=== PATIENT | female | born 1965 | race African-American/Black ===

== ENCOUNTER 2018-11-04 13:47 | Inpatient (IN) ==
[2018-11-04] MEDS ORDERED: MORPHINE 4 MG/1 ML VIAL IV PRN (15:58)
[2018-11-04] MEDS ORDERED: ACETAMINOPHEN 325 MG TABLET PO PRN (15:58)
[2018-11-04] MEDS ORDERED: ALBUTEROL/IPRATROPIUM 3 ML NEB RESP TX PRN (15:58)
[2018-11-04] MEDS ORDERED: ALBUTEROL 2.5 MG/3 ML NEB RESP TX PRN (15:58)
[2018-11-04] MEDS ORDERED: GLUCAGON 1 MG VIAL IM PRN (15:58)
[2018-11-04] MEDS ORDERED: DEXTROSE 50% 25 GM/50 ML SYRINGE IV PRN (15:58)
[2018-11-04] MEDS ORDERED: ZALEPLON 5 MG CAPSULE PO PRN (15:58)
[2018-11-04] MEDS: FUROSEMIDE 40 MG/4 ML VIAL IV SCH (16:32)
[2018-11-04] MEDS: CARVEDILOL 25 MG TABLET PO SCH (16:32)
[2018-11-04] MEDS: INSULIN LISPRO 100 UNIT/ML SUBCUT SCH ×2 (16:33→20:21)
[2018-11-04] MEDS ORDERED: amLODIPine 5 MG TABLET PO ONE (17:13)
[2018-11-04 17:21] LABS: Troponin I < 0.015 NG/ML (0.00-0.045)
[2018-11-04] MEDS: POTASSIUM CHLORIDE 20 MEQ TABLET PO SCH (20:20)
[2018-11-04] MEDS: RANOLAZINE 500 MG TABLET PO SCH (20:20)
[2018-11-04] MEDS: DOCUSATE SODIUM 100 MG CAPSULE PO SCH (20:20)
[2018-11-04] MEDS: GABAPENTIN 600 MG TABLET PO SCH (20:20)
[2018-11-04] MEDS: CAPTOPRIL 25 MG TABLET PO SCH (20:20)
[2018-11-04] MEDS: ENOXAPARIN 40 MG/0.4 ML SYRINGE SUBCUT SCH (20:21)
[2018-11-04] MEDS: NITROGLYCERIN 2% OINT 1 INCH/GM PACK TOP SCH (20:21)
[2018-11-04 23:39] LABS: Troponin I < 0.015 NG/ML (0.00-0.045)
[2018-11-05 06:30] LABS: Basophils % 0.2 % (0.0-0.8); Hemoglobin 12.1 GM/DL (12.0-16.0); Immature Granulocytes % 0.4 %; Immature Granulocytes Absolute 0.04 #; Lymphocytes # 1.6 10*3/uL (1.4-4.0); Mean Corpuscular HGB Conc 29.5 GM/DL (32-36); Mean Corpuscular Hemoglobin 26 PG (27-34); Mean Corpuscular Volume 88.7 FL (87-102); Mean Platelet Volume 11.9 FL (9.6-12.0); Monocytes # 0.8 10*3/uL (0.11-0.8); Neutrophils # 7.6 10*3/uL (1.4-7.4); Neutrophils % 75.4 % (38.7-73.9); Platelet Count 257 T/CUMM (130-400); Red Blood Count 4.62 MC/CUMM (3.8-5.5); Red Cell Distribution Width 15.9 % (9.3-17.3); White Blood Count 10.1 T/CUMM (4-12)
[2018-11-05 06:35] LABS: Albumin 3.2 G/DL (3.4-5.0); Bilirubin,Total 0.7 MG/DL (0.2-1.0); Calcium 8.3 MG/DL (8.5-10.1); Potassium 4.3 MMOL/L (3.5-5.1); Risk Ratio 3.87; Thyroid Stimulating Hormone 0.287 uIU/ml (0.358-3.74); Total Protein 7.8 G/DL (6.4-8.3); VLDL CHOLESTEROL 25.4 MG/DL
[2018-11-05] MEDS: amLODIPine 5 MG TABLET PO SCH (08:44)
[2018-11-05] MEDS: ASPIRIN EC 81 MG TABLET PO SCH (08:44)
[2018-11-05] MEDS: CAPTOPRIL 25 MG TABLET PO SCH ×3 (08:44→21:56)
[2018-11-05] MEDS: ISOSORBIDE MONONITRATE 60 MG TABLET PO SCH (08:44)
[2018-11-05] MEDS: GABAPENTIN 600 MG TABLET PO SCH ×3 (08:44→21:58)
[2018-11-05] MEDS: FUROSEMIDE 40 MG/4 ML VIAL IV SCH ×2 (08:44→15:15)
[2018-11-05] MEDS: RANOLAZINE 500 MG TABLET PO SCH ×2 (08:44→21:58)
[2018-11-05] MEDS: POTASSIUM CHLORIDE 20 MEQ TABLET PO SCH ×2 (08:44→21:57)
[2018-11-05] MEDS: CARVEDILOL 25 MG TABLET PO SCH ×2 (08:44→16:42)
[2018-11-05] MEDS: ATORVASTATIN 40 MG TABLET PO SCH (08:44)
[2018-11-05] MEDS: DOCUSATE SODIUM 100 MG CAPSULE PO SCH ×2 (08:44→21:56)
[2018-11-05] MEDS: INSULIN REGULAR ** CONC 500 UNIT/ML ** 20 ML VIAL SUBCUT SCH ×2 (08:45→16:42)
[2018-11-05] MEDS: NITROGLYCERIN 2% OINT 1 INCH/GM PACK TOP SCH ×2 (08:47→21:58)
[2018-11-05] MEDS ORDERED: LISINOPRIL/HCTZ 20-12.5 MG TABLET PO SCH (09:00)
[2018-11-05] MEDS ORDERED: ONDANSETRON 4 MG/2 ML VIAL ONE (09:05)
[2018-11-05] MEDS: INSULIN LISPRO 100 UNIT/ML SUBCUT SCH ×4 (10:18→21:56)
[2018-11-05] MEDS: ENOXAPARIN 40 MG/0.4 ML SYRINGE SUBCUT SCH (21:57)
[2018-11-06 08:35] LABS: Basophils # 0.1 10*3/uL (0.0-0.2); Basophils % 0.5 % (0.0-0.8); Eosinophils # 0.3 10*3/uL (0.0-0.87); Eosinophils % 2.8 % (0.00-10.9); Hematocrit 40.9 VOL% (35.7-47.0); Immature Granulocytes % 0.3 %; Immature Granulocytes Absolute 0.03 #; Lymphocytes # 3.1 10*3/uL (1.4-4.0); Lymphocytes % 30.3 % (21.3-54.2); Mean Corpuscular HGB Conc 29.1 GM/DL (32-36); Mean Corpuscular Hemoglobin 26 PG (27-34); Mean Corpuscular Volume 89.9 FL (87-102); Monocytes # 0.9 10*3/uL (0.11-0.8); Monocytes % 8.4 % (1.7-12.7); Neutrophils # 5.9 10*3/uL (1.4-7.4); Neutrophils % 57.7 % (38.7-73.9); Platelet Count 253 T/CUMM (130-400); Red Blood Count 4.55 MC/CUMM (3.8-5.5); Red Cell Distribution Width 15.9 % (9.3-17.3); White Blood Count 10.2 T/CUMM (4-12)
[2018-11-06 08:36] LABS: Hemoglobin 11.9 GM/DL (12.0-16.0)
[2018-11-06] MEDS: INSULIN LISPRO 100 UNIT/ML SUBCUT SCH ×4 (09:10→22:15)
[2018-11-06] MEDS: POTASSIUM CHLORIDE 20 MEQ TABLET PO SCH ×2 (09:10→22:16)
[2018-11-06] MEDS: GABAPENTIN 600 MG TABLET PO SCH ×3 (09:10→22:16)
[2018-11-06] MEDS: amLODIPine 5 MG TABLET PO SCH (09:10)
[2018-11-06] MEDS: ISOSORBIDE MONONITRATE 60 MG TABLET PO SCH (09:10)
[2018-11-06] MEDS: DOCUSATE SODIUM 100 MG CAPSULE PO SCH ×2 (09:10→22:15)
[2018-11-06] MEDS: ASPIRIN EC 81 MG TABLET PO SCH (09:10)
[2018-11-06] MEDS: ATORVASTATIN 40 MG TABLET PO SCH (09:10)
[2018-11-06] MEDS: RANOLAZINE 500 MG TABLET PO SCH ×2 (09:10→22:16)
[2018-11-06] MEDS: CAPTOPRIL 25 MG TABLET PO SCH ×2 (09:10→16:27)
[2018-11-06] MEDS: CARVEDILOL 25 MG TABLET PO SCH ×2 (09:10→16:18)
[2018-11-06] MEDS: FUROSEMIDE 40 MG/4 ML VIAL IV SCH ×2 (09:11→16:19)
[2018-11-06] MEDS: NITROGLYCERIN 2% OINT 1 INCH/GM PACK TOP SCH ×2 (09:26→22:16)
[2018-11-06] MEDS: INSULIN REGULAR ** CONC 500 UNIT/ML ** 20 ML VIAL SUBCUT SCH ×2 (10:48→16:27)
[2018-11-06] MEDS: LISINOPRIL 5 MG TABLET PO SCH (22:16)
[2018-11-06] MEDS: ENOXAPARIN 40 MG/0.4 ML SYRINGE SUBCUT SCH (22:16)
[2018-11-07 05:00] LABS: Basophils # 0.1 10*3/uL (0.0-0.2); Basophils % 0.6 % (0.0-0.8); Eosinophils # 0.4 10*3/uL (0.0-0.87); Eosinophils % 4.2 % (0.00-10.9); Hematocrit 39.7 VOL% (35.7-47.0); Immature Granulocytes % 0.4 %; Immature Granulocytes Absolute 0.03 #; Lymphocytes # 3.3 10*3/uL (1.4-4.0); Lymphocytes % 38.1 % (21.3-54.2); Mean Corpuscular HGB Conc 29.2 GM/DL (32-36); Mean Corpuscular Hemoglobin 26 PG (27-34); Mean Corpuscular Volume 89.6 FL (87-102); Mean Platelet Volume 11.1 FL (9.6-12.0); Monocytes % 11.2 % (1.7-12.7); Neutrophils # 3.9 10*3/uL (1.4-7.4); Neutrophils % 45.5 % (38.7-73.9); Platelet Count 230 T/CUMM (130-400); Red Blood Count 4.43 MC/CUMM (3.8-5.5); Red Cell Distribution Width 15.9 % (9.3-17.3); White Blood Count 8.6 T/CUMM (4-12)
[2018-11-07 05:01] LABS: Hemoglobin 11.6 GM/DL (12.0-16.0)
[2018-11-07 05:04] LABS: Calcium 8.6 MG/DL (8.5-10.1); Osmolality,Calculated 286.3 MOS/KG (273-304); Potassium 3.7 MMOL/L (3.5-5.1)
[2018-11-07] MEDS: INSULIN LISPRO 100 UNIT/ML SUBCUT SCH ×2 (07:58→13:16)
[2018-11-07] MEDS: ATORVASTATIN 40 MG TABLET PO SCH (08:56)
[2018-11-07] MEDS: FUROSEMIDE 40 MG/4 ML VIAL IV SCH (08:56)
[2018-11-07] MEDS: POTASSIUM CHLORIDE 20 MEQ TABLET PO SCH (08:56)
[2018-11-07] MEDS: amLODIPine 5 MG TABLET PO SCH (08:56)
[2018-11-07] MEDS: RANOLAZINE 500 MG TABLET PO SCH (08:56)
[2018-11-07] MEDS: GABAPENTIN 600 MG TABLET PO SCH (08:56)
[2018-11-07] MEDS: LISINOPRIL 5 MG TABLET PO SCH (08:56)
[2018-11-07] MEDS: ASPIRIN EC 81 MG TABLET PO SCH (08:56)
[2018-11-07] MEDS: CARVEDILOL 25 MG TABLET PO SCH (08:56)
[2018-11-07] MEDS: DOCUSATE SODIUM 100 MG CAPSULE PO SCH (08:56)
[2018-11-07] MEDS: ISOSORBIDE MONONITRATE 60 MG TABLET PO SCH (08:56)
[2018-11-07] MEDS: INSULIN REGULAR ** CONC 500 UNIT/ML ** 20 ML VIAL SUBCUT SCH (09:15)
[2018-11-07] MEDS: NITROGLYCERIN 2% OINT 1 INCH/GM PACK TOP SCH (10:56)
[2018-11-07 13:38] VITALS: BP 160/81
[2018-11-07 14:44] LABS: Apearance,Urine CLEAR (Clear); Bacteria,Urine Occasional /HPF (Few); Bilirubin,Urine Negative (Negative); Blood, Urine Moderate mg/dL (Negative); Glucose,Urine (UA) Negative (Negative); Ketones,Urine Negative (Negative); Nitrite,Urine Negative (Negative); Protein,Urine Negative; RBC,Urine 10 /HPF (0-4); Squamous Epithelial Cell,Urine Occasional /HPF (0-10); Urine Color Yellow (Yellow); Urine Specific Gravity 1.009 (1.001-1.035); Urine Urobilinogen < 2.0 EU/DL (0.2-1.0); WBC,Urine 2 /HPF (0-6)
[2018-11-07] MEDS ORDERED: FUROSEMIDE 80 MG TABLET PO SCH (16:00)
== END 2018-11-07 14:55 | disposition home health service (06) | DRG 194 ==
LOC: N.ICU 15:17 → SUATTDRO 15:17 → N.TELEN 11-05 18:38
PROVIDERS: ADMIT Family Medicine; ATTEND Internal Medicine